=== PATIENT | male | born 1985 | race Caucasian/White ===

== ENCOUNTER 2025-02-09 14:41 | Emergency (ER) | payer BC, SELFPAY ==
[2025-02-09 14:48] VITALS: BP 135/75; PULSE 71; RESP 20; TEMP 36.4; O2SAT 98
--- NOTE | 2025-02-09 14:59 | ED.GENADULT ---
HPI - General Adult General Chief complaint: Unspecified Stated complaint: migraine/needs note Time Seen by Provider: 02/09/25 14:56 Source: patient and RN notes reviewed Mode of arrival: ambulatory Limitations: no limitations History of Present Illness HPI narrative: Patient presents today requesting a return to work note after a migraine this morning made him call in. He woke up at 5:00 a.m. with some vision changes that typically occur prior to his migraines, then developed headache. Instead of taking his normal sumatriptan, since he was at home he took some Zquil and went back to bed. He woke back up at 1100. The migraine was mostly resolved with some mild residual photophobia. 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 Related Data Home Medications ?Medication ?Instructions ?Recorded ?Confirmed ?Last Taken ?Type No Home Medications 02/09/25 02/09/25 Unknown History Allergies Allergy/AdvReac Type Severity Reaction Status Date / Time No Known Allergies Allergy Verified 02/09/25 14:47 [facility] Past Medical History Medical History (Updated 02/09/25 @ 15:04 by Divya Zepeda, COAL TRIMMER, STOCK PREPARATION OPERATOR) Migraines Comments At time of signature, I have reviewed and agree with nursing past medical, surgical, social and family history unless otherwise noted. Please see nursing chart for further information. There is no relevant family history pertinent to the presenting complaint Exam Narrative: GENERAL: Well-appearing, well-nourished, and in no acute distress. HEAD: Normocephalic, atraumatic. EYES: EOMI. PERRL. No redness or drainage. Conjunctivae normal. ENT: Mucous membranes pink and moist. NECK: Normal AROM. CHEST: No respiratory distress. Clear to auscultation. HEART: Regular rate and rhythm. No murmur appreciated. EXTREMITIES: Normal range of motion. No edema. SKIN: Warm, dry, no rash. Capillary refill normal. Normal skin turgor. NEURO: No focal deficits. Alert and oriented x3. Gait steady. PSYCH: Normal affect. No signs of depression or anxiety. Course Course Level of Care: Express Care Visit Vital Signs Vital signs: Vital Signs Temperature 97.6 F 02/09/25 14:48 Pulse Rate 71 02/09/25 14:48 Respiratory Rate 20 02/09/25 14:48 Blood Pressure 135/75 02/09/25 14:48 Pulse Oximetry 98 02/09/25 14:48 Oxygen Delivery Room Air 02/09/25 14:48 Temperature 97.6 F 02/09/25 14:48 Pulse Rate 71 02/09/25 14:48 Respiratory Rate 20 02/09/25 14:48 Blood Pressure 135/75 02/09/25 14:48 Pulse Oximetry 98 02/09/25 14:48 Oxygen Delivery Room Air 02/09/25 14:48 Reviewed Medical Decision Making MDM Narrative Medical decision making narrative: Patient presents today requesting a return to work note after a migraine this morning made him call in. He woke up at 5:00 a.m. with some vision changes that typically occur prior to his migraines, then developed headache. Instead of taking his normal sumatriptan, since he was at home he took some Zquil and went back to bed. He woke back up at 1100. The migraine was mostly resolved with some mild residual photophobia. 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 Normal physical exam. Work note provided. Vital signs stable. Anticipatory guidance given. Differential Diagnosis Differential Diagnosis: Migraine, cluster headache Vital Signs Vital Signs: Vital Signs Temperature 97.6 F 02/09/25 14:48 Pulse Rate 71 02/09/25 14:48 Respiratory Rate 20 02/09/25 14:48 Blood Pressure 135/75 02/09/25 14:48 Pulse Oximetry 98 02/09/25 14:48 Oxygen Delivery Room Air 02/09/25 14:48 Temperature 97.6 F 02/09/25 14:48 Pulse Rate 71 02/09/25 14:48 Respiratory Rate 20 02/09/25 14:48 Blood Pressure 135/75 02/09/25 14:48 Pulse Oximetry 98 02/09/25 14:48 Oxygen Delivery Room Air 02/09/25 14:48 Critical Care Time Critical Care Time Critical Care Time: No Discharge Plan Discharge Clinical Impression: Migraine Qualifiers: Migraine type: unspecified Status migrainosus presence: without status migrainosus Intractability: not intractable Qualified Code(s): G43.909 - Migraine, unspecified, not intractable, without status migrainosus Patient Disposition: Home Condition: Stable Instructions: Migraine Headache (ED) Patient Language: [place] Prescriptions: No Action No Home Medications Follow-up/Referrals: PHYSICIAN NOT ON STAFF,NONSTAFF [Primary Care Provider] Time of Disposition: 15:04
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
--- OUTSIDE RECORDS SUMMARY | 2025-02-09 15:48 | XMS_ITS | Data Portability ---
[facility] Address [address] [place] [address] Assessment No assessment recorded. Plan of Treatment Reminders Order Date Submit Date Provider Last Modified By Organization Details Last Modified Time Details Appointments None recorded. Lab None recorded. Referral None recorded. Procedures None recorded. Surgeries None recorded. Imaging None recorded. Medication Orders Bactrim DS 800 mg-160 mg tablet 2016 017 INTERFACE [id number], [address], [place], [id number], 16:46:03 Patient TargetsNo targets recorded. Patient InstructionsNo instructions recorded. Reason for Referral None Reported. Medical Equipment None Reported. Allergies No known drug allergies Medications Name Sig Start Date Stop Date Status Note LastModified by Organization Details LastModified Time Bactrim DS 800 mg-160 mg tablet Take 1 tablet every 12 hours by oral route for 10 days. 017 active Not Available Not Available Not Avai lable Vitals Date Recorded Body weight Oxygen saturation Oxygen saturation in Arterial blood by Pulse oximetry Heart rate Systolic And Diastolic Provider Name and Address Organization Details Last Updated DateTime 7 47869.0 7 g 98 % 98 % 54 /min 130/76 mm[Hg] Darron Robledo PA-C Attn: Karen hadley,[address] [facility], [place], [address], [facility] 7 16:38:25 Social History Question Answer Notes LastModified by Organizat ion Details LastModified Time Tobacco Smoking Status Current Every Day Smoker Victoria Arana MA null, [facility] 10/02/2016 16:25:15 How Much Tobacco Do You Smoke? 1 PPD [email or web address] Information not available 10/02/2016 Sex: Male Functional Status None recorded. Mental Status None recorded. Family History Nothing Reported. Medical History No medical history recorded. Immunizations Vaccine Type Date Status Note Provider Nam e and Address Organization Details Recorded Time tetanus toxoid, unspecified formulation 04/20/2013 completed Victoria Arana MA null, [facility] 10/02/2016 16:25:51 Past Encounters Encounter ID Performer Location Encounter Start Date Encounter Closed Date Diagnosis/Indication Diagnosis SNOMED-CT Code Diagnosis ICD10 Code Diagnosis IMO Codes Diagnosis Note [id number] Quinton Valentin MD [facility] [address] [place] [address] 10/02/2016 15:50:34 10/02/2016 17:25:05 Folliculitis 56330520 L02.12 Health Concerns Section Related Observation LastModified by Organization Detai ls LastModified Time None Recorded Concern Status LastModified by Organization Details LastModified Time None Recorded Advance Directives Directive None Recorded Payers Insurance Date Sequence Insurance Name Policy Number Policy [place] Covered Member ID [place] Member ID Guarantor Name 03/30/2020 1 *SELF PAY* Gricel Chavez 03/30/2020 SLIDING FEE SCHEDULE - DISCOUNT Ravin Chavez Notes Date Note Type Note Provider Name and Address Organization Details Recorded Time 10/02/2016 text/html ROS as noted in the HPI thought it was a bug bite. now it has been swelling and hard. Darron Robledo PA-C Attn: [employer],[address] [place], [address], [facility] 10/02/2016 16:47:13
--- OUTSIDE RECORDS SUMMARY | 2025-02-09 15:48 | XMS_ITS | Clinical Summary ---
Author Organization [facility] Address [address] [place] [address] Phone Care Team Providers Care Armature Balancer Name Role Phone Unavailable Primary Care Provider Unavailabl e Allergies No known active allergies Medications naltrexone (DEPADE) 50 MG Tablet Take 1 Tab by mouth daily. 30 Tab 9 Active Additional Information Patient not taking.Reported on 05/03/2019 thiamine (VITAMIN B1) 100 MG Tablet Take 1 Tab by mouth daily. 30 Tab 9 Active Additional Information Patient not taking.Reported on 05/03/2019 methylPREDNISol one (MEDROL DOSPACK) 4 MG Tablet Therapy Pack Use as per instructions on package. 21 Dose Pack 0 Active Additional Information Patient not taking.Reported on 11/09/2019 tobramycin-dexa methasone (TOBRADEX) 0.3-0.1 % Suspension INSTILL 1 DROP INTO RIGHT EYE 4 TIMES A DAY 0 Active traZODone (DESYREL) 50 MG Tablet Take 1 Tab by mouth nightly. 90 Tab 1 0 Active Additional Information Patient not taking.Reported on 06/18/2020 methylPREDNISol one (MEDROL DOSPACK) 4 MG Tablet Therapy Pack Use as per instructions on package. 1 Dose Pack 0 Active Additional Information Patient not taking.Reported on 06/18/2020 buPROPion (WELLBUTRIN) 150 MG XL tablet TAKE 1 TABLET BY MOUTH EVERY DAY IN THE MORNING 90 Tab 1 0 Active Additional Information Patient not taking.Reported on 06/18/2020 HYDROcodone-turner taminophen (NORCO) 5-325 MG Tablet Take 1-2 Tablets by mouth nightly as needed for Moderate or more severe pain. 10 Tablet 1 Active ondansetron (ZOFRAN-ODT) 4 MG TABLET DISPERSIBLE Take 1 Tablet by mouth every 8 hours as needed for Nausea - 1st line. 10 Tablet 1 Active Active Problems Problem Noted Date Diagnosed Date Alcohol abuse, in remission 05/03/2019 Immunizations Immunization Administration Dates Next Due Tetanus Toxoid, Unspecified Formulation 04/20/19 14 Family History Medical History Relation Name Comments No Known Problems Father Bipolar Disorder Mother Bipolar Disorder Sister Relation Name Status Comments Father Alive Mother Alive Sister Alive Social History Tobacco Use Types Packs/Day Years Used Date Smoking Tobacco: Light Smoker Cigarettes Smokeless Tobacco: Never Tobacco Cessation:Ready to Q uit: No; Counseling Given: Yes Alcohol Use Standard Drinks/Week Comments Not Currently 2 (1 standard drink = 0.6 oz pur e alcohol) PHQ-2 Answer Date Recorded Total Score - Questions 1-9 0 10/19 Sexually Active Control Partners Comments Yes Female Sex and Gender Information Value Date Recorded Sex Assigned at Not on file Legal Sex Male 3:37 PM CDT Gender Identity Not on file Sexual Orientation Not on file Last Filed Vital Signs Vital Sign Reading Time Taken Comments Blood Pressure 157/84 06/18/2020 2:27 PM JOURNEY LINEMAN Pulse 69 06/18/2020 2:27 PM JOURNEY LINEMAN Temperature 35.8 C (96.5 F) 06/18/2020 12:37 PM JOURNEY LINEMAN Respiratory Rate 15 06/18/2020 2:27 PM JOURNEY LINEMAN Oxygen Saturation 99% 06/18/2020 2:27 PM JOURNEY LINEMAN Inhaled Oxygen Concentration - - Weight 107 kg (236 lb) 06/18/2020 12:37 PM JOURNEY LINEMAN Height 182.9 cm (6') 06/18/2020 12:37 PM JOURNEY LINEMAN Body Mass Index 32.01 06/18/2020 12:37 PM JOURNEY LINEMAN Plan of Treatment Health Maintenance Due Date Last Done Comments Hepatitis C Virus (HCV) Screening 1985 TdaP Immunization 1983 Hepatitis B Immunization (1 of 3 - 19+ 3-dose series) 09/04/2002 Human Papillomavirus (HPV) Immunization (1 - 3-dose SCDM series) 09/04/2010 Influenza Immunization (#1) 2024 SARS-COV-2 Immunization (2023- season) 2024 Respiratory Syncytial Virus (RSV) Immunization (Adult) (1 - 1-dose 75+ series) 09/04/2058 Meningococcal Immunization (ACWY) Aged Out No longer eligible based on patient's age to complete this topic Pneumococcal Immunization Combined Aged Out No longer eligible based on patient's age to complete this topic Rotavirus Immunization Aged Out No lo nger eligible based on patient's age to complete this topic
== END 2025-02-09 15:14 | disposition home or self-care (01) ==
PROVIDERS: Emergency Provider Nurse Practitioner
DX: G43.909 Migraine, unspecified, not intractable, without status migrainosus (principal)
CPT/HCPCS: 99202; G0463